=== PATIENT | female | born 1970 | race Caucasian/White ===

== ENCOUNTER 2020-12-10 18:57 | Inpatient (IN) | payer MEDICARE ==
[~2020-12-10] VITALS: Ht 167.6 cm; Wt 49.7 kg
[2020-12-10] MEDS ORDERED: LAMO100 PO (19:13)
[2020-12-10] MEDS ORDERED: METH10 PO (19:14)
[2020-12-10] MEDS ORDERED: PERTUSS(ACELL),DIPH,TET VAC/PF 0.5 ML SYRINGE IM. ONE (20:45)
[2020-12-10 20:58] LABS: BASOPHILS % (AUTO) 0.1 % (0.0-2.0); EOSINOPHILS % (AUTO) 0 % (1.0-6.0); HEMOGLOBIN 12.8 g/dL (12.0-16.0); LYMPHOCYTES # (AUTO) 0.8 K/uL (1.0-4.8); MEAN CORPUSCULAR HEMOGLOBIN 29.9 pg (26.0-34.0); MEAN CORPUSCULAR HGB CONC 33.7 G/dL (31.0-37.0); MEAN CORPUSCULAR VOLUME 89 fL (80-100); MONOCYTES # (AUTO) 0.1 K/uL (0.1-1.0); MONOCYTES % (AUTO) 1.4 % (2.0-9.0); NEUTROPHILS # (AUTO) 6.6 K/uL (1.8-7.7); PLATELET COUNT (AUTO) 298 K/uL (150-450); RED BLOOD CELL COUNT(AUTO) 4.28 MIL/uL (4.00-5.20); RED CELL DISTRIBUTION WIDTH 13.5 % (11.5-14.5)
[2020-12-10 21:00] LABS: NEUTROPHILS % (AUTO) 87.5 % (40.0-70.0)
[2020-12-10] MEDS ORDERED: OxyCODONE HCL 5 MG IR TABLET PO ONE (21:00)
[2020-12-10 21:08] LABS: ANION GAP 7 mmol/L (8-16); CALCIUM, TOTAL 8.7 mg/dL (8.8-10.5); CARBON DIOXIDE 30 mmol/L (22-29); CHLORIDE 104 mmol/L (98-107); CREATININE 0.92 mg/dL (0.60-1.30); GLOMERULAR FILTR. RATE CALC > 60 mL/min (>60); GLUCOSE,RANDOM 129 mg/dL (70-110); POTASSIUM 4.4 mmol/L (3.5-5.1); SODIUM SERUM 141 mmol/L (136-145); UREA NITROGEN, BLOOD 25 mg/dL (7-18)
[2020-12-10 21:34] LABS: ALANINE AMINOTRANSFERASE 50 U/L (12-78); ALBUMIN 3.9 g/dL (3.4-5.0); ALKALINE PHOSPHATASE 140 U/L (46-116); ASPARTATE AMINOTRANSFERASE 44 U/L (15-37); BILIRUBIN,TOTAL 0.2 mg/dL (0.1-1.0); CREATINE KINASE, TOTAL ONLY 262 U/L (26-192); TOTAL PROTEIN, SERUM 7.8 g/dL (6.4-8.2)
[2020-12-10 21:38] LABS: ACETAMINOPHEN < 2 mcg/mL (10-30)
[2020-12-10] MEDS ORDERED: HALOPERIDOL 5 MG TABLET PO PRN (21:45)
[2020-12-10 22:30] LABS: COVID AG,FIA SOURCE NASOPHARYNGEAL
[2020-12-11] MEDS ORDERED: TraZODone HCL 50 MG TABLET PO ONE (00:30)
[2020-12-11 01:02] LABS: APPEARANCE,URINE CLEAR (CLEAR); BILIRUBIN,URINE NEGATIVE (NEGATIVE); GLUCOSE, URINE (UA) NEGATIVE (NEGATIVE); KETONES,URINE NEGATIVE (NEGATIVE); LEUKOCYTE ESTERASE ,URINE NEGATIVE (NEGATIVE); NITRATE,URINE NEGATIVE (NEGATIVE); OCCULT BLOOD,URINE NEGATIVE (NEGATIVE); PH,URINE 7.5 (5.0-8.0); PROTEIN,URINE NEGATIVE (NEGATIVE); UROBILINOGEN,URINE 0.2 mg/dL (<=1.0)
[2020-12-11 01:04] LABS: BACTERIA,URINE Rare /HPF (None Seen); RBC,URINE None Seen /HPF (0-2); WBC,URINE 0-2 /HPF (0-5)
[2020-12-11 01:07] LABS: AMPHET/METH SCREEN,URINE NEGATIVE (NEGATIVE); BARBITURATE SCREEN, URINE NEGATIVE (NEGATIVE); BENZODIAZEPINES SCREEN,URINE POSITIVE (NEGATIVE); CANNABINOID SCREEN,URINE NEGATIVE (NEGATIVE); COCAINE SCREEN,URINE NEGATIVE (NEGATIVE); METHADONE SCREEN, URINE NEGATIVE (NEGATIVE); OPIATE SCREEN,URINE NEGATIVE (NEGATIVE)
[2020-12-11 01:09] LABS: CHOL/HDL RATIO 2.9 (3.9-5.7); CHOLESTEROL 200 mg/dL (131-200); HDL CHOLESTEROL 69 mg/dL (40-60); LDL CHOL (CALC.) 94 mg/dL (0-130); TRIGLYCERIDES 185 mg/dL (15-150)
[2020-12-11 01:11] LABS: PHENCYCLIDINE SCREEN,URINE NEGATIVE (NEGATIVE)
[2020-12-11] MEDS ORDERED: ROPI2TAB26 PO (01:20)
[2020-12-11] MEDS: LORazepam 2 MG TABLET PO PRN ×2 (09:49→17:37)
[2020-12-11 11:00] VITALS: BP 122/78
[2020-12-11 16:02] VITALS: BP 108/80
[2020-12-11] MEDS: BACITRACIN 28 GM OINTMENT TP SCH (16:10)
[2020-12-11] MEDS: LITHIUM CARBONATE 300 MG CAPSULE PO SCH (20:11)
[2020-12-11] MEDS: LamoTRIgine 100 MG TABLET PO SCH (20:11)
[2020-12-11] MEDS ORDERED: ROPINIRole HCL 1 MG TABLET PO SCH (21:00)
[2020-12-11] MEDS: ZOLPIDEM TARTRATE 10 MG TABLET PO PRN (21:27)
[2020-12-12 00:31] VITALS: BP 102/73
[2020-12-12] MEDS: BACITRACIN 28 GM OINTMENT TP SCH ×2 (08:04→16:47)
[2020-12-12] MEDS: LamoTRIgine 100 MG TABLET PO SCH ×2 (08:04→20:17)
[2020-12-12] MEDS: LORazepam 2 MG TABLET PO PRN ×3 (08:04→19:02)
[2020-12-12] MEDS: LITHIUM CARBONATE 300 MG CAPSULE PO SCH ×2 (08:04→20:17)
[2020-12-12 08:17] VITALS: BP 113/69
[2020-12-12] MEDS ORDERED: PETROLATUM,WHITE 28 GM JELLY TP PRN (12:15)
[2020-12-12] MEDS ORDERED: ACETAMINOPHEN 325 MG TABLET PO PRN (12:15)
[2020-12-12] MEDS ORDERED: MAG HYDROX/AL HYDROX/SIMETH ES 30 ML SUSPENSION UDCUP PO PRN (12:15)
[2020-12-12] MEDS ORDERED: MAGNESIUM HYDROXIDE SUSPENSION 30 ML UDCUP PO PRN (12:15)
[2020-12-12] MEDS ORDERED: BENZOCAINE/MENTHOL LOZENGE PO PRN (12:15)
[2020-12-12] MEDS ORDERED: CloNIDine HCL 0.1 MG TABLET PO PRN (12:15)
[2020-12-12] MEDS ORDERED: ALBUTEROL SULFATE HFA 90 MCG/PUFF 8 GM INHALER IH PRN (12:15)
[2020-12-12] MEDS ORDERED: BACITRACIN 28 GM OINTMENT TP PRN (12:15)
[2020-12-12] MEDS ORDERED: DOCUSATE SODIUM 100 MG CAPSULE PO PRN (12:15)
[2020-12-12] MEDS ORDERED: OMEPRAZOLE 20 MG CAPSULE PO PRN (12:15)
[2020-12-12 16:17] VITALS: BP 123/81
[2020-12-12] MEDS: ZOLPIDEM TARTRATE 10 MG TABLET PO PRN (21:35)
[2020-12-12 22:22] VITALS: BP 129/86
[2020-12-12] MEDS: IBUPROFEN 600 MG TABLET PO PRN (22:32)
[2020-12-13 04:13] VITALS: BP 126/80
[2020-12-13 08:05] VITALS: BP 113/80
[2020-12-13] MEDS: LORazepam 2 MG TABLET PO PRN ×3 (08:05→21:42)
[2020-12-13] MEDS: LamoTRIgine 100 MG TABLET PO SCH ×2 (08:08→20:19)
[2020-12-13] MEDS: LITHIUM CARBONATE 300 MG CAPSULE PO SCH ×2 (08:08→20:19)
[2020-12-13] MEDS: BACITRACIN 28 GM OINTMENT TP SCH ×2 (09:23→16:51)
[2020-12-13 11:26] LABS: ALANINE AMINOTRANSFERASE 49 U/L (12-78); ALBUMIN 3.9 g/dL (3.4-5.0); ALKALINE PHOSPHATASE 123 U/L (46-116); ANION GAP 7 mmol/L (8-16); ASPARTATE AMINOTRANSFERASE 32 U/L (15-37); BILIRUBIN,TOTAL 0.3 mg/dL (0.1-1.0); CALCIUM, TOTAL 9.1 mg/dL (8.8-10.5); CARBON DIOXIDE 31 mmol/L (22-29); CHLORIDE 105 mmol/L (98-107); CREATINE KINASE, TOTAL ONLY 105 U/L (26-192); CREATININE 0.87 mg/dL (0.60-1.30); GLOMERULAR FILTR. RATE CALC > 60 mL/min (>60); GLUCOSE,RANDOM 101 mg/dL (70-110); POTASSIUM 4.6 mmol/L (3.5-5.1); SODIUM SERUM 143 mmol/L (136-145); TOTAL PROTEIN, SERUM 7.9 g/dL (6.4-8.2); UREA NITROGEN, BLOOD 20 mg/dL (7-18)
[2020-12-13 16:05] VITALS: BP 122/75
[2020-12-13] MEDS: ZOLPIDEM TARTRATE 10 MG TABLET PO PRN (20:19)
[2020-12-14 01:03] VITALS: BP 121/78
[2020-12-14] MEDS: LORazepam 2 MG TABLET PO PRN ×2 (04:38→09:49)
[2020-12-14] MEDS: LamoTRIgine 100 MG TABLET PO SCH (08:50)
[2020-12-14] MEDS: LITHIUM CARBONATE 300 MG CAPSULE PO SCH (08:50)
[2020-12-14 08:53] VITALS: BP 116/72
[2020-12-14] MEDS: BACITRACIN 28 GM OINTMENT TP SCH (09:00)
[2020-12-14 10:36] VITALS: BP 124/84
[2020-12-14] MEDS: IBUPROFEN 600 MG TABLET PO PRN (10:36)
[2020-12-14 11:35] VITALS: BP 139/80
== END 2020-12-14 13:21 | disposition left against medical advice (07) | DRG 885 ==
LOC: EMS 19:00 → B3A 12-11 08:00
PROVIDERS: ADMIT Psychiatry & Neurology Psychiatry; ATTEND Psychiatry & Neurology Psychiatry
DX: F31.9 Bipolar disorder, unspecified (principal); R45.851 Suicidal ideations; M62.82 Rhabdomyolysis; Z53.29 Procedure and treatment not carried out because of patient's decision for other reasons; E78.5 Hyperlipidemia, unspecified; K59.00 Constipation, unspecified; G47.00 Insomnia, unspecified; F41.9 Anxiety disorder, unspecified; F22 Delusional disorders; S00.33XA Contusion of nose, initial encounter; Z20.822 Contact with and (suspected) exposure to COVID-19; S01.01XA Laceration without foreign body of scalp, initial encounter; W10.8XXA Fall (on) (from) other stairs and steps, initial encounter; Y93.89 Activity, other specified; Y99.8 Other external cause status; Y92.89 Other specified places as the place of occurrence of the external cause; Z91.51 Personal history of suicidal behavior; Z79.899 Other long term (current) drug therapy
CPT/HCPCS: 70450; 70486; 71101; 80053; 80061; 81001; 82550; 85025; 90715; 99285; G0480; G0481

== ENCOUNTER 2020-12-14 12:16 | Emergency (ER) | payer MEDICARE ==
[~2020-12-14] VITALS: Ht 167.6 cm; Wt 49.5 kg
[~2020-12-14 12:16] MED LIST: LAMO100 PO; METH10 PO; ROPI2TAB26 PO
[2020-12-14 12:39] VITALS: BP 116/70
== END 2020-12-14 14:47 | disposition home or self-care (01) ==
LOC: EMS 12:16
DX: S20.211A Contusion of right front wall of thorax, initial encounter (principal); S00.83XA Contusion of other part of head, initial encounter; F31.9 Bipolar disorder, unspecified; Z91.011 Allergy to milk products; Z91.018 Allergy to other foods; X58.XXXA Exposure to other specified factors, initial encounter; Y92.89 Other specified places as the place of occurrence of the external cause; Y93.89 Activity, other specified; Y99.8 Other external cause status
CPT/HCPCS: 93005; 99283

== ENCOUNTER 2021-02-27 19:04 | Emergency (ER) | payer MEDICARE ==
[~2021-02-27] VITALS: Ht 167.6 cm; Wt 47.7 kg
[2021-02-27 19:22] VITALS: BP 117/86
[2021-02-27] MEDS ORDERED: LAMO100 PO (19:33)
[2021-02-27] MEDS ORDERED: GABA-1201 PO (19:33)
[2021-02-27] MEDS ORDERED: TRAZ-257 PO (19:33)
[2021-02-27] MEDS ORDERED: ROPI1TAB46 PO (19:33)
[2021-02-27] MEDS ORDERED: DULO60CA98 PO (19:33)
== END 2021-02-27 21:55 | disposition home or self-care (01) ==
LOC: EMS 19:11
DX: F31.9 Bipolar disorder, unspecified (principal); Z76.0 Encounter for issue of repeat prescription; Z91.011 Allergy to milk products; Z91.018 Allergy to other foods; Z79.899 Other long term (current) drug therapy
CPT/HCPCS: 99281; Z7502